=== PATIENT | male | born 1960 | race Caucasian/White ===

== ENCOUNTER 2020-06-28 19:06 | Emergency (ER) | payer OTHER, SELFPAY ==
[2020-06-28 19:15] VITALS: BP 99/65; PULSE 80; RESP 14; TEMP 36.8; O2SAT 96
--- NOTE | 2020-06-28 20:15 | ED.GENADULT ---
HPI - General Adult General Chief complaint: Unspecified Stated complaint: bumps over body Time Seen by Provider: 06/28/20 20:05 Source: patient Mode of arrival: ambulatory Limitations: no limitations History of Present Illness HPI narrative: 60-year-old man comes in today complaining of an itchy rash on his forearms, chest, abdomen and right upper leg. He states the symptoms have been there for several days. Denies wheezing, fever, tenderness, nausea, vomiting, throat or lip swelling, and new exposures. Onset (ago): week(s) (1) Location: chest, abdomen, left, right, upper extremity and lower extremity Radiation: non-radiation Severity: moderate Quality: other ( Itching) Pain Consistency: constant Relieving factors: none Exacerbating factors: none Associated symptoms: denies other symptoms Treatments prior to arrival: other ( Dali dry) Related Data Allergies Allergy/AdvReac Type Severity Reaction Status Date / Time No Known Drug Allergies Allergy Unknown Verified 03/08/13 14:09 Review of Systems Constitutional: Constitutional: Denies chills and Denies fever(s) Eyes: Eyes: Denies change in vision and Denies photophobia ENT: Denies nasal congestion and Denies sore throat Cardiovascular: Cardiovascular: Denies chest pain and Denies radiating jaw, neck or arm pain Respiratory: Respiratory: Denies cough, Denies dyspnea and Denies wheezing Gastrointestinal: Gastrointestinal: Denies nausea and Denies vomiting Musculoskeletal: Musculoskeletal: Denies arthralgias and Denies joint swelling Integumentary/Breasts: Skin/Breast: Reports pruritus, Reports erythema and Reports rash Neurologic: Reports vertigo, Reports dizziness and Reports syncope Allergic/Immunologic: Allergic/Immunologic: Denies lip swelling, Denies throat swelling and Denies tongue swelling [facility] Surgical History Surgical History Cubital canal compression release History of carpal tunnel surgery Previous back surgery S/P ORIF (open reduction internal fixation) fracture right leg Social History Social History Smoking status: Current every day smoker Substance use: never Living arrangements: with family Course Vital Signs Vital signs: Vital Signs Temperature 36.8 C 06/28/20 19:15 Pulse Rate 80 06/28/20 19:15 Respiratory Rate 14 06/28/20 19:15 Blood Pressure 99/65 L 06/28/20 19:15 Pulse Oximetry 96 06/28/20 19:15 Temperature 36.8 C 06/28/20 19:15 Pulse Rate 80 06/28/20 19:15 Respiratory Rate 14 06/28/20 19:15 Blood Pressure 99/65 L 06/28/20 19:15 Pulse Oximetry 96 06/28/20 19:15 Medical Decision Making Vital Signs Vital Signs: Vital Signs Temperature 36.8 C 06/28/20 19:15 Pulse Rate 80 06/28/20 19:15 Respiratory Rate 14 06/28/20 19:15 Blood Pressure 99/65 L 06/28/20 19:15 Pulse Oximetry 96 06/28/20 19:15 Temperature 36.8 C 06/28/20 19:15 Pulse Rate 80 06/28/20 19:15 Respiratory Rate 14 06/28/20 19:15 Blood Pressure 99/65 L 06/28/20 19:15 Pulse Oximetry 96 06/28/20 19:15 Discharge Plan Discharge Clinical Impression: Contact dermatitis and other eczema due to plants (except food) Patient Disposition: Home, Self-Care Condition: Stable Instructions: Contact Dermatitis (ED), Poison Dali (ED) Additional Instructions: Cool compresses for itching. Follow up next week with your physician if symptoms are not improving. Prescriptions: New prednisone 20 mg tablet 50 mg PO DAILY 7 Days Qty: 17.5 RF: 0 Follow-up/Referrals: UNKNOWN,DOCTOR [Primary Care Provider] - Time of Disposition: 20:23
[2020-06-28 20:23] VITALS: RESP 15; O2SAT 100
[2020-06-28] MEDS: predniSONE 20 MG TABLET 60 MG PO (20:25)
== END 2020-06-28 20:30 | disposition home or self-care (01) ==
PROVIDERS: Emergency Provider Emergency Medicine
DX: L25.5 Unspecified contact dermatitis due to plants, except food (principal)
CPT/HCPCS: 99283; J7512

== ENCOUNTER 2020-07-08 12:09 | Emergency (ER) | payer OTHER, SELFPAY ==
--- NOTE | 2020-07-08 12:52 | ED.WOUNDLAC ---
HPI - Wound/Laceration General Chief Complaint: Wound/Laceration Stated Complaint: cut finger on bone grinder Time Seen by Provider: 07/08/20 12:52 Source: patient Mode of arrival: ambulatory Limitations: no limitations History of Present Illness HPI narrative: 60-year-old man comes in today complaining of a laceration on the radial aspect of his left index finger. Patient states he was using a bone grinder when it slipped and cut his finger. He states he has some mildly decreased sensation in his finger tip. He states his last tetanus was over 5 years ago. He denies any difficulty in bending or straightening the wounded finger. Onset (ago): hour(s) (1) Extremity Location: Left: hand Place: home Patient tetanus UTD: No Context: accidental Associated symptoms: pain and loss of feeling/numbness Treatments prior to arrival: bandage Related Data Allergies Allergy/AdvReac Type Severity Reaction Status Date / Time No Known Drug Allergies Allergy Unknown Verified 03/08/13 14:09 Review of Systems Musculoskeletal: Musculoskeletal: Denies arthralgias and Denies joint swelling Integumentary/Breasts: Skin/Breast: Denies pruritus, Denies erythema and Denies rash Neurologic: Denies vertigo, Denies dizziness and Denies syncope Hematologic/Lymphatic: Hematologic/Lymphatic: Denies easy bleeding and Denies easy bruising PMFSH Social History Social History Smoking status: Current every day smoker Substance use: never Exam Const: General: healthy appearing and alert Orientation/consciousness: patient oriented x3 Limitations: no limitations Other: mild acute distress Skin: General skin exam: normal color, no jaundice and no pallor Rashes: no rashes Other: 3 cm more less linear wound on the radial aspect of the left index finger. Neuro: General: patient oriented x3, moves all extremities and CN's II-XI intact bilaterally Speech: normal speech Gait exam (Neuro): Normal gait present Extrem: General: normal to inspection and no clubbing, cyanosis or edema Psych: Appearance: grossly normal and well kempt Mental Status: mental status grossly normal Attitude: cooperative Thought content: Yes Normal thought content present Procedures Laceration Laceration 1: Date: 07/08/20 Time: 13:07 Site: upper extremity Side (If applicable): left Size (cm): 3 Description: linear Depth: simple, single layer Local Anesthetic: lidocaine 1% and none ( Local and digital block) Amount of anesthesia used (mL): 4 Pre-repair: irrigated extensively and extensive debridement (Cauterized wound edges revised with scalpel) ====== Skin Level ====== Skin layer closed with: nylon Size (cm): 5-0 Number of sutures: 6 Technique: simple, interrupted ====== Subcutaneous Layer ====== ====== Muscle Layer ====== ====== Tendon Layer ====== Discharge Plan Discharge Clinical Impression: Laceration Patient Disposition: Home, Self-Care Condition: Stable Instructions: Care For Your Stitches (ED), Laceration (ED) Additional Instructions: Keep the wound clean and dry. He notice redness, swelling, yellow, green her avoid drainage, or red streaks going up your arm, be seen immediately. Prescriptions: New acetaminophen-codeine 300-30 mg tablet 1 tablet PO Q6H PRN (Reason: pain) Qty: 10 RF: 0 Follow-up/Referrals: UNKNOWN,DOCTOR [Primary Care Provider] - Time of Disposition: 13:36
[2020-07-08 12:53] VITALS: BP 142/71; PULSE 82; RESP 16; TEMP 36.8; O2SAT 96
[2020-07-08] MEDS: TETANUS,DIPHTHERIA,AC PERTUSSIS ADULT 0.5 ML (ADACEL) IM (13:05)
[2020-07-08] MEDS: LIDOCAINE HCL 1% LOCAL INJ 20 ML VIAL 5 ML INFILTRATE (13:06)
== END 2020-07-08 13:40 | disposition home or self-care (01) ==
PROVIDERS: Emergency Provider Emergency Medicine
DX: S61.211A Laceration without foreign body of left index finger without damage to nail, initial encounter (principal); W27.8XXA Contact with other nonpowered hand tool, initial encounter
CPT/HCPCS: 12002; 90471; 90715; 99283

== ENCOUNTER 2024-01-26 12:19 | Emergency (ER) | payer OTHER, SELFPAY ==
[2024-01-26] VITALS (19 sets, daily range): BP systolic 104–131; BP diastolic 56–94; PULSE 75–87; RESP 13–32; TEMP 36.3; O2SAT 91–99
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
--- NOTE | ~2024-01-26 | CT_ITS ---
EXAMINATION: CT lumbar spine wo con DATE: 01/26/2024 13:24 INDICATION: Back pain TECHNIQUE: Computed tomography (CT) of the lumbar spine was performed without intravenous contrast. T he dose-length product was 501.05 mGy-cm. Automated exposure control and iterative reconstruction bryanna hnique were employed. COMPARISON: None FINDINGS: There is degenerative disc disease at all lumbar levels. Vertebral body heights are maintai jim. There is endplate sclerosis at L4-5 and L5-S1. No acute fracture or traumatic malalignment. No e vidence for spondylolisthesis. There is mild multilevel facet hypertrophy at L4-5 and L5-S1. There is atherosclerosis. There is bilateral lower lobe atelectasis. IMPRESSION: 1. No acute abnormality of the lumbar spine. 2: Moderate lumbar spondylosis. Reviewed, dictated and finalized at location B.
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
--- NOTE | 2024-01-26 12:54 | PC.NURSE ---
ICE PACKS APPLIED TO RT FOREARM AND MEDIAL CHEST. C COLLAR WAS PLACED. PT MEDIAL CHEST IS TENDER TO PALPATION, SWELLING NOTED. BRUISING NOTED TO LEFT UPPER CHEST, HEMATOMA AND ABRASION NOTED TO RT LOWER ARM, POINT TENDERNESS NOTED TO POSTERIOR NECK. PT REPORTS LOWER BACK PAIN AND RT KNEE PAIN. PT DENIES ANY LOC, IS A&OX4 UPON ARRIVAL. WILL CONTINUE TO MONITOR. PT WAS GIVEN FENTANYL PER EMS TALEND DEVELOPER.
--- NOTE | 2024-01-26 13:59 | ECG_ITS ---
SEE SCANNED COPY FOR CONFIRMED REPORT MTDD
--- NOTE | 2024-01-26 14:02 | PC.NURSE ---
PT HAS RETURNED FROM CT. HAS COME AND LEFT, TO RETURN. PT IS AWAITING RESULTS AT THIS TIME AND A RETURN CALL FROM DR MARAVILLA. WILL CONTINUE TO MONITOR.
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
[2024-01-26] MEDS: ONDANSETRON INJ 4 MG/2 ML VIAL IV PUSH (14:37)
[2024-01-26] MEDS: HYDROmorphone HCL INJ (*CRX) 2 MG/ML VIAL 0.5 MG IV PUSH (14:37)
[2024-01-26 14:43] LABS: Basophils Absolute Auto 0.04 K/mm3 (0.00-0.10); Basophils Percent Auto 0.3 % (0.0-1.0); Eosinophils Absolute Auto 0.01 K/mm3 (0.02-0.50); Eosinophils Percent Auto 0.1 % (1.0-6.0); Hematocrit 43.5 % (40.0-54.0); Hemoglobin 14.1 g/dL (14.0-18.0); Immature Granulocyte Absolute 0.09 K/mm3 (0.00-0.00); Immature Granulocyte Percent A 0.6 % (0.0-0.0); Lymphocytes Absolute Auto 2.08 K/mm3 (1.10-4.50); Lymphocytes Percent Auto 13.2 % (18.0-42.0); Mean Corpuscular HGB Conc 32.4 g/dL (32-36); Mean Corpuscular Hemoglobin 30.7 pg (27.0-31.0); Mean Corpuscular Volume 94.6 fL (78.0-102.0); Mean Platelet Volume 10.3 fl (8.7-11.0); Monocytes Absolute Auto 0.78 K/mm3 (0.10-0.90); Neutrophils Absolute Auto 12.74 K/mm3 (1.70-7.20); Neutrophils Percent Auto 80.8 % (50.0-70.0); Platelet Count Result 204 K/mm3 (150-420); Red Cell Distribution Width 12.8 % (11.6-14.4); White Blood Count 15.7 K/mm3 (4.8-10.8)
[2024-01-26 14:54] LABS: Appearance Urine Clear (Clear); Bilirubin Urine Negative (Negative); Blood Urine Negative (Negative); Color Urine Yellow (Yellow); Glucose Urine UA Negative (Negative); Ketones Urine Negative (Negative); Leukocyte Esterase Ur Negative LEU/UL (Negative); Nitrate Urine Negative (Negative); Protein Urine Negative (Negative); Urobilinogen Urine 0.2 mg/dL (0.2-1.0)
[2024-01-26 14:58] LABS: Partial Thromboplastin Time 24.5 Sec (23.9-30.70); Prothrombin Time 10.5 Seconds (9.50-12.1)
[2024-01-26 15:01] LABS: Alanine Aminotransferase 28 U/L (16-63); Albumin Level 3.7 g/dL (3.4-5.0); Alkaline Phosphatase 92 U/L (46-116); Anion Gap 7 mmol/L (4-12); Aspartate Amino Transferase 25 U/L (15-37); Bilirubin,Total 0.4 mg/dL (0.00-1.00); Blood Urea Nitrogen 9 mg/dL (7-18); Calcium 8.8 mg/dL (8.5-10.1); Carbon Dioxide 31 mmol/L (21-32); Chloride 103 mmol/L (98-108); Creatine Kinase 153 U/L (39-308); Estimated CRCL calculation 68 ml/min; Estimated Glomerular Filt Rate > 60; Glucose 101 mg/dL (70-99); Lipase 13 U/L (16-77); Osmolality Calculated 290 mOsm/kg (285-295); Sodium 141 mmol/L (136-145); Total Protein 6.8 g/dL (6.4-8.2); Troponin I 6.2 ng/L (0.00-60.4)
[2024-01-26 15:03] LABS: Add Urine Microscopic? NO
[2024-01-26] MEDS: TETANUS,DIPHTHERIA,AC PERTUSSIS ADULT 0.5 ML (ADACEL) IM (15:15)
--- NOTE | 2024-01-26 15:21 | PC.NURSE ---
HAS LEFT TO GET PT BELONGINGS, PT IS RESTING ON STRETCHER, AWAITING EMS TRANSPORT. VSS PER MONITOR. WILL CONTINUE TO MONITOR. PT IS AWAITING EMS FOR TRANSPORT.
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
--- NOTE | 2024-01-26 16:46 | PC.NURSE ---
rad disc sent with pt, images were pushed to philip
== END 2024-01-26 16:47 | disposition short-term general hospital (02) ==
PROVIDERS: Emergency Provider Internal Medicine Critical Care Medicine
DX: S22.20XA Unspecified fracture of sternum, initial encounter for closed fracture (principal); M25.461 Effusion, right knee; V49.40XA Driver injured in collision with unspecified motor vehicles in traffic accident, initial encounter; F17.200 Nicotine dependence, unspecified, uncomplicated; Z23 Encounter for immunization
CPT/HCPCS: 36415; 70450; 71250; 72125; 72131; 73562; 74176; 80053; 81003; 82550; 83690; 84484; 85025; 85610; 85730; 90471; 90715; 93005; 96374; 96375; 99285; J1170; J2405; L0150

== ENCOUNTER 2025-07-25 09:20 | Outpatient (CLI) | payer MEDICARE, SELFPAY ==
[2025-07-25 09:31] LABS: Hematocrit 46.3 % (37.0-46.0); Hemoglobin 14.8 g/dL (12.4-15.3); Immature Granulocyte Percent A 0.1 % (0.0-0.0); Lymphocytes Absolute Auto 3.77 K/mm3 (1.10-4.50); Mean Corpuscular HGB Conc 32.0 g/dL (32-36); Mean Corpuscular Hemoglobin 30.7 pg (27.0-31.0); Mean Corpuscular Volume 96.1 fL (78.0-102.0); Nucleated Red Blood Cells Absolute Auto 0.00 K/mm3 (0.00-0.00); Nucleated Red Blood Cells Perc 0.0 % (0-0.0); Platelet Count Result 234 K/mm3 (150-420); Red Blood Count 4.82 M/mm3 (4.70-6.10); White Blood Count 8.8 K/mm3 (4.8-10.8)
[2025-07-25 10:01] LABS: Alanine Aminotransferase 15 U/L (6-50); Albumin Level 4.8 g/dL (3.5-5.1); Alkaline Phosphatase 68 U/L (38-126); Anion Gap 6 mmol/L (4-12); Aspartate Amino Transferase 27 U/L (17-59); Bilirubin,Total 0.7 mg/dL (0.2-1.3); Blood Urea Nitrogen 23 mg/dL (9-20); Calcium 9.8 mg/dL (8.4-10.2); Carbon Dioxide 28 mmol/L (22-30); Chloride 105 mmol/L (98-107); Cholesterol 229 mg/dL (0-200); Estimated Glomerular Filt Rate > 60; Glucose 89 mg/dL (65-110); HDL Direct 75 mg/dL; Osmolality Calculated 290 mOsm/kg (285-295); Potassium 4.7 mmol/L (3.4-5.0); Sodium 139 mmol/L (137-145); Total Protein 8.1 g/dL (6.3-8.2); Triglycerides 82 mg/dL (<150)
--- OUTSIDE RECORDS SUMMARY | 2025-07-25 10:28 | XMS_ITS | Encounter Summary ---
Author Organization [facility] Address [address] [place] [id number] Care Team Providers Care Technical Project Lead Name Role Phone Rafat Doran DO Primary Care Provider [phone] Encounter Details Date Type Department Care Team (Late st Contact Info) Description 06/21/2024 Pre-Procedure Call [facility] Pre-Admission Testing [address] [place], [place] [id number] Isaak Poon MD [facility] [address] [address] Anesthesia Record Procedure Summary Procedure Name Responsible Anesthesiologist Anesthesia Start Time Anesthesia Stop Time MRI CERV SPINE WO CON Nic Blue MD 06/28/24 0744 06/28/24 0942 Events Date Time Event Comment 06/28/2024 0701 0701 AN Anesthesia Prepped 0744 An Start Patient ID and consent checked and patient reassessed. 0744 An Start Data 0748 Preoxygenation 0749 An Induction The patient was reevaluated immediately before moderate or deep sedation use and before anesthesia induction. 0750 An LMA 0802 Anesthesia Ready 0934 An Emergence 0935 LMA Removed 0937 Face Mask Applied 0937 an stop data 0941 Post Anesthetic Care Handoff I completed my handoff to the receiving nurse during which we: 1. Identified the patient 2. Identified the responsible provider 3. Reviewed the pertinent medical history 4. Discussed the surgical course 5. Reviewed intra-op anesthesia management and issues during anesthesia 6. Set expectations for post-procedure period 7. Allowed opportunity for questions and acknowledgement of understanding. 0942 An Stop Meds * Agents No agents on file. * Blood No blood administrations on file. Lines, Drains, and Airways Type Details Placement Removal Peripheral IV Placement Date: 06/05 02/24; Placement Time: 0710; Placed Outside of This Facility?: No; Size: 20 G; Orientation: Right; Location: Hand; Site Prep: Chlorhexidine; Local Anesthetic: None; Inserted By: Eva Dick RN; Insertion attempts: 1; Ultrasound-guided Placement?: No; Patient Tolerance: Tolerated well; Removal Date: 06/28/24; Removal Time: 075; Removal Reason: Infiltrated 06/28/24 0710 by Morena Guardado RN 06/28/24 0755 by Nic Blue MD Supraglottic Airway Placement Date: 06/05 02/24; Placement Time: 075; Airway Device: LMA; LMA Size: 4; Placed Outside of This Facility?: No; Placed By: HUONG; Style: i-gel; Insertion Attempts:1; Placement Verified By: Capnography, Chest Rise; Extubation Assessment: Patient spontaneously breathing, Atraumatic; Removal Date: 06/28/24; Removal Time: 0959; Removal Person: SECURITY ESCORT; Removal Reason: End of Case 06/28/24 0750 by Lucas Barnett CRNA 06/28/24 0959 by Lucas Barnett CRNA Peripheral IV Placement Date: 06/05 02/24; Placement Time: 075; Size: 18 G; Orientation: Right; Location: Antecubital; Site Prep: Chlorhexidine; Local Anesthetic: (Under GA); Inserted By: Anesthesiologist; Insertion attempts: 1; Ultrasound-guided Placement?: No; Patient Tolerance: Tolerated well; Removal Date: 06/28/24; Removal Time: 1030; Removal Reason: Patient Discharged 06/28/24 0753 by Nic Blue MD 06/28/24 1030 by Manuela Marrufo RN documented in this encounter Social History Tobacco Use Types Packs/Day Years Used Date Smoking Tobacco: Every Day Cigarettes Smokeless Tobacco: Never Comments:1 PPD for 50 years Alcohol Use Standard Drinks/Week Comments Never 0 (1 standard drink = 0.6 oz pur e alcohol) Sex and Gender Information Value Date Recorded Sex Assigned at Not on file Legal Sex Male 7:15 PM CDT Gender Identity Not on file Sexual Orientation Not on file documented as of this encounter Last Filed Vital Signs Vital Sign Reading Time Taken Comments Blood Pressure - - Pulse - - Temperature - - Respiratory Rate - - Oxygen Saturation - - Inhaled Oxygen Concentration - - Weight 72.6 kg (160 lb) 06/21/2024 1:32 PM CDT Height 182.9 cm (6') 06/21/2024 1:32 PM CDT Body Mass Index 21.7 06/21/2024 1:32 PM CDT documented in this encounter Progress Notes * Felicia Zuñiga RN - 06/21/2024 1:22 PM CDT Cannot hold still even in open MRI. (Failed x2) Can you climb 2 flights of stairs without CP or extreme SOB? Yes, denies CP or extreme SOB Are you physically able to do the same things today that you could 6 months ago?only reduced 2/2 back pain What is your average blood pressure? 120/80 Any recent heart testing? (EKG, stress test, Echo?) none Do you see a patient service representative? Who is it? None Patient is a current tobacco user. They were instructed to hold any tobacco use after midnight the night before the surgical procedure. Patient understood instructions and provided consent. Arrive at 0600. NPO discussed documented in this encounter OR Notes * OR PreOp - GHAZALA Grady - 06/22/2024 8:51 AM CDT Chart reviewed. Per phone interview, patient denies extreme SOB/CP with 2 FOS or recent changes in activity tolerance in past 6 months with exception to back pain. Per phone interview, patient denieshaving a patient service representative or previous cardiac testing. documented in this encounter Plan of Treatment Not on file documented as of this encounter Visit Diagnoses Not on filedocumented in this encounter Care Teams Technical Project Lead Relationship Specialty Start Date End Date Rafat Doran DO [address] [place] [address] PCP - General FAMILY PRACTICE 06/28/24 documented as of this encounter
--- OUTSIDE RECORDS SUMMARY | 2025-07-25 10:29 | XMS_ITS | Clinical Summary ---
Author Organization [facility] Address [address] [place] [id number] Care Team Providers Care B2B Managed Service Sales Exec Name Role Phone AndreeaRafat Primary Care Provider [phone] Allergies No known active allergies Medications HYDROcodone-acet aminophen (NORCO) 5-325 MG tablet Take 1 tablet by mouth every 4 (four) hours as needed for Pain. 06/09/2024 Active ibuprofen (MOTRIN) 200 MG tablet Take 1 tablet (200 mg total) by mouth every 6 (six) hours as needed for Pain. Active Social History Tobacco Use Types Packs/Day Years [...] on file Sexual Orientation Not on file Last Filed Vital Signs Vital Sign Reading Time Taken Comments Blood Pressure 111/68 06/28/2024 10:43 AM CDT Pulse 97 06/28/2024 10:43 AM CDT Temperature 36.3 C (97.4 F) 06/28/2024 10:43 AM CDT Respiratory Rate 18 06/28/2024 10:43 AM CDT Oxygen Saturation 97% 06/28/2024 10:43 AM CDT Inhaled Oxygen Concentration - - Weight 64.2 kg (141 lb 8.6 oz) 06/28/2024 6:45 A M CDT Height 182.9 cm (6') 06/28/2024 6:45 AM CDT Body Mass Index 19.2 06/28/2024 6:45 AM CDT Plan of Treatment Health Maintenance Due Date Last Done Comments Colorectal Cancer Screening Colonoscopy (10 Years) 1960 Hepatitis C 1978 Pneumococcal Vaccine: 50+ Years (1 of 2 - PCV) 1979 Zoster Vaccines (1 of 2) 2010 COVID-19 Vaccine (2 - 2024-2 6 season) 2025 04/29/2021 Influenza Adult (#1) 2025 DTaP, Tdap and Td Vaccines ( 3 - Td or Tdap) 01/25/2034 01/26/2024, 07/08/2020 RSV Immunization or 60+ Years (1 - 1-dose 75+ series) 2035 Hepatitis A Vaccines Aged Out No long er eligible based on patient's age to complete this topic Meningococcal B Vaccine Aged Out No l onger eligible based on patient's age to complete this topic Meningococcal Vaccine Aged Out No kvng jhoan eligible based on patient's age to complete this topic RSV Immunizations Under 20 Months Aged Out No longer eligible b ased on patient's age to complete this topic Insurance [employer] Care Teams B2B Managed Service Sales Exec Relationship Specialty Start Date End Date Rafat Doran DO [address] [place] [address] PCP - General FAMILY PRACTICE 06/28/24
== END 2025-07-25 09:21 | disposition home or self-care (01) ==
LOC: CHSLAB 09:23
PROVIDERS: PCP Family Medicine; Visit Provider Family Medicine
DX: S22.009A Unspecified fracture of unspecified thoracic vertebra, initial encounter for closed fracture (principal); E78.5 Hyperlipidemia, unspecified
CPT/HCPCS: 36415; 80053; 80061; 85025